=== PATIENT | male | born 1985 | race Caucasian/White ===

== ENCOUNTER 2024-12-09 09:19 | Outpatient (OUT) | payer BC, SELFPAY ==
--- OUTSIDE RECORDS SUMMARY | 2024-11-26 10:33 | XMS_ITS | Encounter Summary ---
Author Organization [facility] Blue tem Address [facility] [id number] [address] [place] [address] Care Team Providers Care Grab Jack Worker Name Role Phone Jhoana Vanegas APRN-MECHANICAL COMMISSIONING ENGINEER Primary Care Provider + Encounter Details Date Type Department Care Team (Latest Contact Info) Description 11/26/2024 10:33 AM EDT - 11/26/2024 11:59 PM EDT Hospital Encounter [facility] [address] [place] [id number] Closed displaced pilon fracture of left tibia with routine healing, subsequent encounter; Closed displaced fracture of shaft of right clavicle with routine healing, subsequent encounter Discharge Disposition: Home Social History Tobacco Use Types Packs/Day Years Used Date Smoking Tobacco: Former Cigarettes Smokeless Tobacco: Never Alcohol Use Standard Drinks/Week Comments Yes 0 (1 standard drink = 0.6 oz pur e alcohol) [facility] Utilities Answer Date Recorded In the past 12 months has [employer], [employer], oil, or water [employer] threatened to shut off services in your home? No 11/11/2024 AUDIT-C Answer Date Recorded Q1: How often do you have a drink containing alcohol? Never 11/04/2024 Q2: How many drinks containi ng alcohol do you have on a typical day when you are drinking? Patient does not drink Q3: How often do you have si x or more drinks on one occasion? Never 11/04/2024 PHQ-2 Answer Date Recorded Total Score 0 11/04/2024 PRAPARE - Transportation Answer Date Re corded In the past 12 months, has l ack of transportation kept you from medical appointments or from getting medications? No 11/2024 In the past 12 months, has l ack of transportation kept you from meetings, work, or from getting things needed for daily living? No 11/11/2024 Housing Instability Answer Date Recorde d Are you worried or concerned that in the next two months you may not have stable housing that you own, rent or stay in as a part of a household? No 11/11/2024 Childcare Answer Date Recorded Childcare Unknown 10/17/2018 Employment Answer Date Recorded Employment Unknown 10/17/2018 Hunger Screening Answer Date Recorded Within the past 12 months we worried whether our food would run out before we got money to buy more. Never True 11/21/2024 Within the past 12 months th e food we bought just didn't last and we didn't have money to get more. Never True 11/21/2024 Sex and Gender Information Value Date Recorded Sex Assigned at Not on file Legal Sex Male 11:43 AM EDT Gender Identity Not on file Sexual Orientation Not on file documented as of this encounter Medications at Time of Discharge acetaminophen (TYLENOL EXTRA STRENGTH) 500 mg tablet Take 1 tablet (500 mg total) by mouth every 6 (six) hours as needed for pain. aspirin 325 mg EC tablet Take 1 tablet (325 mg total) by mouth in the morning for 42 days. This medication is being prescribed for the prevention of blood clots, not for pain control. Do not stop taking until all pills are taken. 42 tablet 11/14/2024 clotrimazole (LOTRIMIN) 1 % cream Apply 1 Application topically in the morning and 1 Application before bedtime. APPLY TO THE AFFECTED AREA(S) TWICE DAILY (USE ON circular SKIN LESIONS). 10/28/2024 famotidine (PEPCID) 40 mg tablet Take 1 tablet (40 mg total) by mouth in the morning. 10/28/2024 fluticasone propionate (FLONASE) 50 mcg/actuation nasal spray Administer 1 spray into each nostril in the morning. 10/28/2024 hydrocortisone (HYTONE) 2.5 % cream Apply 1 Application topically in the morning and 1 Application before bedtime. APPLY TO THE AFFECTED AREA(S) TWICE DAILY UNTIL GONE (USE ON finger TO RASH). 10/28/2024 lidocaine (LIDODERM) 5 %Indications:Close d fracture of multiple ribs of right side, initial encounter,Tibia/fi bula fracture, right, closed, initial encounter,Closed nondisplaced fracture of shaft of right clavicle, initial encounter,Closed fracture of left ankle, initial encounter Place 1 patch on the skin in the morning. Remove & Discard patch within 12 hours or as directed by . 30 patch 11/09/2024 menthol (BIOFREEZE, MENTHOL,) 4 % gel Apply 1 Application topically 2 (two) times a day as needed. methocarbamoL (ROBAXIN) 500 mg tablet Take 1 tablet (500 mg total) by mouth in the morning and 1 tablet (500 mg total) at noon and 1 tablet (500 mg total) in the evening and 1 tablet (500 mg total) before bedtime. naloxone (NARCAN) 4 mg/actuation spray,non-aerosol nasal spray Administer 1 spray (4 mg total) into alternating nostrils as needed for opioid reversal. 1 each 11/08/2024 oxyCODONE (OXY-IR) 5 mg capsule Take 1 capsule (5 mg total) by mouth every 4 (four) hours as needed for pain. Max Daily Amount: 30 mg polyethylene glycol (GLYCOLAX) 17 gram packet Take 17 g by mouth in the morning. sennosides-docusat e sodium (SENOKOT-S) 8.6-50 mg Take 1 tablet by mouth in the morning. documented as of this encounter Plan of Treatment Upcoming Encounters Date Type Department Care Team (Late st Contact Info) Description 12/26/2024 11:10 AM EDT Office Visit [facility] [address] [place] [phone] Hever Faulkner MD [address] [facility], [address] [place] [address] documented as of this encounter Goals Goal Patient Goal Type Associated Problems Recent Progress Patient-Stated? Author Safe discharge General Yes Pura Ortega, RN Note: Evaluation of progress towards goal: Awaiting medical progress and to evaluate mobility status. Discussed home vs rehab. documented as of this encounter Procedures Procedure Name Priority Date/Time Associated Diagnosis Comments XR ANKLE LT MIN 3 VWS Routine 11/26/2024 11:23 AM EDT Closed displaced pilon fracture of left tibia with routine healing, subsequent encounter XR CLAVICLE RT Routine 11/26/2024 11:23 AM EDT Closed displaced fracture of shaft of right clavicle with routine healing, subsequent encounter documented in this encounter Results * X-ray clavicle right (11/26/2024 11:23 AM EDT) Anatomical Region Laterality Modality Upper Extremities, MSK, Clavicle Right Computed Radiography 11/29/2024 12:4 1 PM EDT Narrative 11/29/2024 12:42 PM EDT Comparison November 11 XR CLAVICLE RT Closed displaced fracture of shaft of right clavicle with routine healing, subsequent encounter Impression: Stable appearance of fracture morphology clavicle. Stable positioning and alignment. Finalized by Paras Hamlin MD on 11/29/2024 12:42 PM Procedure Note Paras Hamlin MD - 11/29/2024 Comparison November 11 XR CLAVICLE RT Closed displaced fracture of shaft of right clavicle with routine healing,subsequent encounter Impression: Stable appearance of fracture morphology clavicle. Stable positioning andalignment. Finalized by Paras Hamlin MD on 11/29/2024 12:42 PM us Hevre Faulkner MD IMG DIAGNOSTIC IMAGING O RDERABLES Final Result * X-ray ankle left minimum 3 views (11/26/2024 11:23 AM EDT) Anatomical Region Laterality Modality Lower Extremities, MSK, Ankle Left Co mputed Radiography 11/29/2024 12:4 1 PM EDT Narrative 11/29/2024 12:41 PM EDT Comparison November 11 XR ANKLE LT MIN 3 VWS Closed displaced pilon fracture of left tibia with routine healing, subsequent encounter Impression: Stable appearance of fracture morphology and transfixing hardware. Stable positioning and alignment. Finalized by Paras Hamlin MD on 11/29/2024 12:41 PM Procedure Note Paras Hamlin MD - 11/29/2024 Comparison November 11 XR ANKLE LT MIN 3 VWS Closed displaced pilon fracture of left tibia with routine healing,subsequent encounter Impression: Stable appearance of fracture morphology and transfixing hardware. Stablepositioning and alignment. Finalized by Paras Hamlin MD on 11/29/2024 12:41 PM us Hever Faulkner MD IMG DIAGNOSTIC IMAGING O RDERABLES Final Result documented in this encounter Visit Diagnoses Diagnosis Closed displaced pilon fracture of left tibia with routine healing, subsequent encounter Closed displaced fracture of shaft of right clavicle with routine healing, subsequent encounter documented in this encounter Additional Health Concerns Assessment Noted Time PHQ-9 Depression Total Score: 0 11/05/19 12:38 PM EDT documented as of this encounter Care Teams Grab Jack Worker Relationship Specialty Start Date End Date Jhoana Vanegas, DIRECTOR OF SECURITIES AND REAL ESTATE-MECHANICAL COMMISSIONING ENGINEER [address] [place] [address] PCP - General Nurse Practitioner 11/05/24 documented as of this encounter
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
--- OUTSIDE RECORDS SUMMARY | 2024-12-09 09:28 | XMS_ITS | Clinical Summary ---
Author Organization [facility] Address [address] [place] [address] Care Team Providers Care Group Supervisor Yard Name Role Phone Unavailable Primary Care Provider Unavailabl e Active Problems Problem Noted Date Diagnosed Date Acute postoperative pain of right shoulder 09/10 S/P arthroscopy of right shoulder 09/11/2023 Acute pain of right shoulder 06/09/2023 Calcific tendonitis of right shoulder 06/09/2023 Encounters Date Type Department Care Team Description 11/26/2024 [facility] [address] [place] [id number] Unallocated, [facility] ProviderMD from Last 3 Months Social History Tobacco Use Types Packs/Day Years Used Date Smoking Tobacco: Never Assessed Sex and Gender Information Value Date Recorded Sex Assigned at Not on file Legal Sex Male 8:01 PM EDT Gender Identity Not on file Sexual Orientation Not on file Plan of Treatment Not on file Insurance BS
--- OUTSIDE RECORDS SUMMARY | 2024-12-09 09:28 | XMS_ITS | Patient Health Record ---
Author Organization [facility] Address [address] [place] [address] Care Team Providers Care Hat Brusher Machine Name Role Phone Jhoana Vanegas Primary Care Provider Griffin Rincon [phone] Allergies Allergen (clinical drug ingredient) Drug/Non Drug Allergy documented on EMR Reaction Allergy Type Onset Date Status buspirone busPIRone made anxiety worse Drug Allergy Active Reason For Referral No Information Social History Tobacco Use: Social History Observation Description Date Details (start date - stop date) Current Smoker NA - NA Smoking History Question Answer Notes Smoking Status Current Smoker Problems Problem Type SNOMED Code ICD Code Onset Dates Problem Status W/U Status Risk Notes Problem Neck pain (M54.2) Active confirmed Problem [id number] 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) Active confirmed Problem Femoral acetabular impingement (473116072) 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
--- OUTSIDE RECORDS SUMMARY | 2024-12-09 09:28 | XMS_ITS | Encounter Summary ---
Author Organization [facility] Address [id number] [address] [place] [address] Care Team Providers Care Mangle Press Catcher Name Role Phone Jhoana Vanegas MANAGER PEDIATRIC-BREAD STACKER Primary Care Provider + Encounter Details Date Type Department Care Team (Late st Contact Info) Description 12/05/2024 Telephone [facility]Tra[facility] Adult [facility] [address] [place] [address] Renetta Cerda Social History Tobacco Use Types Packs/Day Years Used Date Smoking Tobacco: Former Cigarettes Smokeless Tobacco: Never Alcohol Use Standard Drinks/Week Comments Yes 0 (1 standard drink = 0.6 oz pur e alcohol) [facility] Utilities Answer Date Recorded In the past 12 months has e electric, gas, oil, or water company threatened [...] on file documented as of this encounter Miscellaneous Notes * Telephone Encounter - Renetta Cerda - 12/05/2024 10:15 AM EDT Patient along with his physical therapist called in regarding his physical therapy orders would like to know if he is able to do passive ROM with his L ankle stated there is some confusion regarding that and the cam boot gave [phone] as a good callback number to discuss * Telephone Encounter - Gilma Rae PA-C - 12/05/2024 10:15 AM EDT Patient now has his Cam boot for the left ankle. Patient may perform active and passive ankle rangeof motion as tolerated. documented in this encounter Plan of Treatment Upcoming Encounters Date Type Department Care Team (Late st Contact Info) Description 12/26/2024 11:10 AM EDT Office Visit [facility] Adult [facility] [address] [place] [phone] Hever Faulkner MD [address] [facility] [place] [address] documented as of this encounter Goals Goal Patient Goal Type Associated Problems Recent Progress Patient-Stated? Author Safe discharge General Yes Pura Ortega, HAN Note: Evaluation of progress towards goal: Awaiting medical progress and to evaluate mobility status. Discussed home vs rehab. documented as of this encounter Visit Diagnoses Not on filedocumented in this encounter Additional Health Concerns Assessment Noted Time PHQ-9 Depression Total Score: 0 11/05/19 12:38 PM EDT documented as of this encounter Care Teams Mangle Press Catcher Relationship Specialty Start Date End Date Jhoana Vanegas, MANAGER PEDIATRIC-BREAD STACKER [address] [place] [address] PCP - General Nurse Practitioner 11/05/24 documented as of this encounter
--- OUTSIDE RECORDS SUMMARY | 2024-12-09 09:28 | XMS_ITS | Encounter Summary ---
Author Organization [facility] Address [address] [place] [address] Care Team Providers Care Compliance Engineer Products Name Role Phone Unavailable Primary Care Provider Unavailabl e Encounter Details Date Type Department Care Team (Late st Contact Info) Description 11/26/2024 Abstract [facility] [address] [place] [id number] Unallocated, [facility] Provider, [address] [place], [place] [id number] Social History Tobacco Use Types Packs/Day Years Used Date Smoking Tobacco: Never Assessed Sex and Gender Information Value Date Recorded Sex Assigned at Not on file Legal Sex Male 8:01 PM EDT Gender Identity Not on file Sexual Orientation Not on file documented as of this encounter Plan of Treatment Not on file documented as of this encounter Visit Diagnoses Not on filedocumented in this encounter
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
--- OUTSIDE RECORDS SUMMARY | 2024-12-09 09:29 | XMS_ITS | Encounter Summary ---
Author Organization [employer] [facility] tem Address [facility] [place] [id number] [address] [place] [address] Care Team Providers Care Bottle House Quality Control Technician Name Role Phone GuilhermeJhoana hernandez Olivia ELLIOTTN-DELICATESSEN DEPARTMENT MANAGER Primary Care Provider + Encounter Details Date Type Department Care Team (Latest Contact Info) Description 11/26/2024 Travel Social History Tobacco Use Types Packs/Day Years Used Date Smoking Tobacco: Former Cigarettes Smokeless Tobacco: Never Alcohol Use Standard Drinks/Week Comments Yes 0 (1 standard drink = 0.6 oz pur e alcohol) [facility] Utilities Answer Date Recorded In the past 12 months has [employer] electric, gas, oil, or water company threatened [...] [facility] [address] [place] [id number] Hever Faulkner MD [address] [facility] [place], [place] [id number] documented as of this encounter Goals Goal [...] documented as of this encounter Care Teams Bottle House Quality Control Technician Relationship Specialty Start Date End Date Jhoana Vanegas, CROWNING HAMMER OPERATOR-DELICATESSEN DEPARTMENT MANAGER [address] [place], [place] [id number] PCP - General Nurse Practitioner 11/05/24 documented as of this encounter
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
--- NOTE | 2024-12-09 10:16 | XR_ITS ---
[facility] [place] [id number] Patient Name: DUNCAN GLASER MRN: [facility]:[id number] date: 1985 Sex: M Assigned Patient Location: MRI Current Patient Location: MRI Accession/Order Number: [id number] Exam Date: 12/09/2024 10:33 Report Date: 12/09/2024 10:34 At the request of: ANJEL MARSHALL Procedure: XR foreign body eye LORENA Orbits 2 views. Reason for exam: Pre-MRI. FINDINGS: No radiopaque foreign body seen. No bony destruction is noted. XR/XR foreign body eye LORENA IMPRESSION: No radiopaque foreign body. Impression dictated by: Rancho Duran Jr., D.OLexi 12/09/2024 10:34 AM Dictation Location: [place] [address] Electronically authenticated by: [id number] Y Date: 12/09/2024 10:34
== END 2024-12-09 09:20 | disposition home or self-care (01) ==
LOC: MRI 09:26
PROVIDERS: Visit Provider Nurse Practitioner
DX: M25.512 Pain in left shoulder (principal); S42.202A Unspecified fracture of upper end of left humerus, initial encounter for closed fracture
CPT/HCPCS: 70030; 73221